=== PATIENT | male | born 1955 | race Caucasian/White ===

== ENCOUNTER 2016-11-06 13:30 | Inpatient (IN) | payer OTHER ==
[~2016-11-06] VITALS: Ht 185.4 cm; Wt 107.9 kg
--- NOTE | ~2016-11-06 | ER ---
PATIENT'S NAME: BOB GAMA [facility] AGE: 61 Y [address] ROOM: [id number] [place], [place] [address] LOCATION: [facility] ADMIT DATE: 11/06/2016 ER/Outpatient Report DISCHARGE DATE: FAMILY PHYSICIAN: Osmel Medel MD ATTENDING PHYSICIAN: Daniel Scott TIME OF ARRIVAL: 13:30. TIME SEEN: 13:30. IDENTIFICATION: A 61-year-old male. CHIEF COMPLAINT: Spine injury. 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 He denies hitting his head. No loss of consciousness. He denies neck pain. He complains of pain in his mid and low back. He was evaluated in [place] by Dr. Braeden Grant, and found to have a wedge fracture of T12, with L2 compression fractures and transverse process fractures in the lumbar spine. He is neurologically intact. The remainder CT scans were negative other than very tiny bilateral apical pneumothoraces. ALLERGIES: NO KNOWN DRUG ALLERGIES. CURRENT MEDICATIONS: 1. The patient received 200 mcg of fentanyl en route. 2. Aspirin 81 mg daily. 3. He takes a blood pressure medicine, a cholesterol medicine, and medicine for reflux. He does not know the names of them. MEDICAL PROBLEMS: 1. Hypertension. 2. Gastroesophageal reflux disease. 3. Hyperlipidemia. 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 He lives in [place]. He is . Tobacco use, denies. Alcohol use, denies. Drug use, PATIENT'S NAME: BOB GAMA [facility] AGE: 61 Y [address] ROOM: [id number] [place], [place] [address] LOCATION: [facility] ADMIT DATE: 11/06/2016 ER/Outpatient Report DISCHARGE DATE: FAMILY PHYSICIAN: Osmel Medel MD ATTENDING PHYSICIAN: Daniel Scott. REVIEW OF SYSTEMS: All systems were reviewed and were negative other than what is noted in the HPI. PHYSICAL EXAMINATION: VITAL SIGNS: Height is 6 feet 1 inch and weight is 107.3 kg. Blood pressure was 123/78, pulse was 66, respirations were 18, temperature were 98.2, and saturations were 97% on room air. GENERAL: A 61-year-old male, in no acute distress. At this time, his pain is tolerable. HEENT: Head: Normocephalic and atraumatic other than a small abrasion in left frontal scalp. Eyes: Pupils were equal and reactive to light and accommodation. Extraocular movements were intact. Nose: Mucosa was pink. No lesions or drainage. Mouth: No lesions. Pharynx was benign. No malocclusion of his teeth. NECK: Supple. No lymphadenopathy. No tenderness to palpation of his cervical spine. LUNGS: Clear to auscultation. Breath sounds were slightly diminished in the bases. HEART: Regular rate and rhythm. No murmur, rub, or gallop. ABDOMEN: Bowel sounds were present. Soft, nondistended, and nontender. SKIN: [place], warm, and dry. Abrasion on the left frontal scalp and the PIP of his right third finger. Superficial scratches on his lower extremities and superficial scratches on his upper and lower back. NEUROLOGICAL: The patient is alert and oriented x4. Cranial nerves II through XII were grossly intact. Motor strength was 5/5 throughout. Sensation was intact to light touch. EMERGENCY ROOM COURSE: Records as well as CT scans were reviewed from [place]. Dr. Scott did roll the patient. We log-rolled him here in the Emergency Room. He did have the abrasions as noted on his back with tenderness in the mid thoracic and lumbar spine, and then some swelling in the lower thoracic and lumbar spine area. The patient remained hemodynamically stable throughout his stay here in the Emergency Room. LABORATORY DATA: Labs from [place] included at 09:54, hemoglobin of 14, hematocrit of 42, white count of 12.5, and platelets of 208. Venous pH was 7.36. INR is 1.1. Sodium was 136, potassium was 3.6, chloride was 110, bicarb was 19, BUN was 20, creatinine was 1.19, and blood sugar was 213. Liver enzymes were normal. DIAGNOSTIC STUDIES: PATIENT'S NAME: BOB GAMA [facility] AGE: 61 Y [address] ROOM: [id number] [place], [place] [address] LOCATION: [facility] ADMIT DATE: 11/06/2016 ER/Outpatient Report DISCHARGE DATE: FAMILY PHYSICIAN: Osmel Medel MD ATTENDING PHYSICIAN: Daniel Scott Head CT without contrast was normal. Lumbar spine CT without contrast had acute anterior compression fractures of T12 and L2, slightly distracted left T11 transverse process and right T12 transverse process and pars fractures, displaced left L1 and bilateral L2 and left L3 transverse process fractures, and transitional sacralized L5 vertebral body. CT scan of the cervical spine without contrast, moderate central right disk protrusion. Osteophyte complex at C5-C6 causes moderate to severe right foraminal stenosis, likely impinging the right C6 nerve root. Mild chronic disk protrusion at C6-C7 with mild foraminal stenosis. Mild disk bulges at the remaining levels. Moderate right C3-C4 foraminal stenosis. Moderately severe right C4-C5 foraminal stenosis, which could affect the right C5 nerve root. CT of chest and abdomen and pelvis with IV contrast, small bilateral pneumothoraces. Right upper anterior mediastinal contusion without extravasation of contrast. Minimal right upper pneumomediastinum. Mild upper retroperitoneal contusion without extravasation of contrast. IMPRESSION AND PLAN: 1. T12 compression fracture. 2. L2 compression fracture. 3. Transverse process fractures including left T11, right T12, left L1, bilateral L2, and left L3. 4. T12 pars interarticularis fracture. 5. Degenerative changes and foraminal stenosis of the cervical spine with no acute traumatic abnormalities. 6. Small bilateral pneumothoraces. 7. Right upper anterior mediastinal contusion without extravasation of contrast and minimal right upper pneumomediastinum. 8. Mild upper retroperitoneal contusion. Dr. Scott, Spine surgeon on-call, evaluated the patient in the Emergency Room and planned for admission. The patient will be placed in a TLSO brace and an [place] cervical collar. Dr. Mchugh, Trauma surgeon on-call, also evaluated the patient in the Emergency Room for consultation, and the patient was taken to the floor in stable condition. JOSIANE MARSHALL MD CAR/modl PATIENT'S NAME: BOB GAMA [facility] AGE: 61 Y [address] ROOM: [address] [address] LOCATION: [facility] ADMIT DATE: 11/06/2016 ER/Outpatient Report DISCHARGE DATE: FAMILY PHYSICIAN: Osmel Medel MD ATTENDING PHYSICIAN: Daniel Scott /[id number] d: 11/06/162038 t: 11/08/162045, OUTPATIENT REPORT
--- NOTE | ~2016-11-06 | CON ---
PATIENT'S NAME: BOB GAMA [facility] AGE: 61 Y [address] ROOM: [place] [address] LOCATION: [facility] ADMIT DATE: 11/06/2016 Consultation DISCHARGE DATE: FAMILY PHYSICIAN: Physician, Unknown ATTENDING PHYSICIAN: Dayanna Kat DATE OF CONSULTATION: 11/06/2016 HISTORY OF PRESENT ILLNESS: This is a consultation to the emergency department for a trauma evaluation for a 61-year-old male who was taking down a deer stand from a tree and fell approximately 18 feet to packed dirt below. He had no loss of consciousness. He was able to crawl to his phone which was nearby and call for an ambulance service to take him to a local hospital. There he was evaluated with physical exam, laboratory, and radiologic imaging. He had some identified thoracolumbar fractures without identified neurologic injury. He also had tiny bilateral pneumothoraces seen on his CT imaging. The remainder of his clinical and radiographic examination was normal. The patient was transferred to [facility] for further evaluation. Again the patient denies loss of consciousness and he complains only of back pain. PAST MEDICAL HISTORY: Significant for hypertension, hyperlipidemia, and gastroesophageal reflux disease. PAST SURGICAL HISTORY: His surgeries include a "hernia repair" to the abdomen and groin without further clarification. ALLERGIES: HE HAS NO ALLERGIES. PHYSICAL EXAMINATION: VITAL SIGNS: He is afebrile with normal vital signs. GENERAL: His GCS is 15. He is in no significant distress. HEENT: Reveals only a small abrasion over his left brow. His cranial nerves are intact. His sclerae are anicteric and uninjected. His oropharynx is clear. His midface is stable. His neck is supple. There is no evidence of scalp lacerations or cervical injuries. His C-spine has been cleared radiographically at the previous hospital and he arrived without a collar. CARDIAC: Normal. CHEST: Reveals no evidence of bony deformity or tenderness or crepitus. He has bilateral breath sounds. ABDOMEN: Soft. He does have some laparoscopic port site scars consistent with previous surgery. Nontender. His pelvis is stable. PATIENT'S NAME: BOB GAMA [facility] AGE: 61 Y [address] ROOM: [place] [address] LOCATION: [facility] ADMIT DATE: 11/06/2016 Consultation DISCHARGE DATE: FAMILY PHYSICIAN: Physician, Unknown ATTENDING PHYSICIAN: Dayanna Kat : His testicles are descended bilaterally. His phallus is circumcised and normal. RECTAL: Normal. EXTREMITIES: Shows small abrasions to his left calf. He has full range of motion of his upper and lower extremities and he is able to raise his elbows off the table. His knees are up in the air and his heel is off the table. His back has some midline tenderness without step-off or obvious ecchymoses. He has no flank tenderness. DIAGNOSTIC DATA: His laboratory examination is unremarkable. CT scan images were reviewed. IMPRESSION: 1. Thoracolumbar fractures. 2. Tiny occult bilateral pneumothorax without clinical evidence of respiratory compromise. RECOMMENDATIONS: 1. Defer management of spinal injuries to the primary team. 2. Obtain a chest x-ray if the patient develops pulmonary symptoms of tachypnea, shortness of breath, or hypoxia. Otherwise routine chest x- ray is not necessarily indicated. 3. Avoid air travel for a period of 6 weeks. This is a soft recommendation but appears prudent given the tiny pneumothoraces that he did develop traumatically. CHERYLE SALGUERO MD CM/vianney /[id number] d: 11/06/16 1531 t: 11/12/16 0708, CONSULTATION REPORT
--- NOTE | ~2016-11-06 | PUL ---
PATIENT'S NAME: BOB GAMA [facility] AGE: 61 Y [address] ROOM: [address] [address] LOCATION: [facility] ADMIT DATE: 11/06/2016 Pulmonary DISCHARGE DATE: 11/09/2016 FAMILY PHYSICIAN: Osmel Medel MD ATTENDING PHYSICIAN: Daniel Scott NAME OF PROCEDURE: Overnight Pulse Oximetry DATE OF PROCEDURE: November 08 to November 09, 2016 REASON FOR EXAM: Nocturnal hypoxemia RESULTS: The test was preformed on room air. The recording time was 9 hours, 30 minutes, and 28 seconds. The highest pulse was 105 per minute, lowest pulse was 68 per minute, mean pulse was 82 per minute. Highest SpO2 was 97%, lowest SpO2 was 82%, and mean SpO2 was 98.6%. The total cumulative time when saturation was below 88% is more than 9 minutes. The desaturation event index is 4.3. PHYSICIAN INTERPRETATION: The patient has evidence of significant nocturnal hypoxia and would qualify for supplemental oxygen as per Medicare criteria. Because of the severity of nocturnal hypoxia we would recommend a sleep study at this time. MD HENOK CLAYTON/agustina /[id number] dtt: 11/11/16 1644 , TELMA JACKSON dtd: 11/11/16 1529
--- NOTE | ~2016-11-06 | HP ---
PATIENT'S NAME: BOB GAMA [facility] AGE: 61 Y [address] ROOM: [address] [address] LOCATION: [facility] ADMIT DATE: 11/06/2016 History & Physical DISCHARGE DATE: FAMILY PHYSICIAN: Osmel Medel MD ATTENDING PHYSICIAN: Daniel Ross DATE OF SERVICE: 11/06/2016 TIME: 2:15 p.m. HISTORY OF PRESENT ILLNESS: Mr. Gama is a 61-year-old right-handed healthy white male, fell approximately 20 feet out of a deer stand, landed on his back on hard dirt. No loss of consciousness. The incident occurred approximately 9:30 a.m. Immediate severe pain in the mid and low back, he has no pain radiating down his arms or legs or noted weakness. No loss of bowel or bladder control. Denies neck pain, but he absolutely refuses to move his neck. He has received fentanyl 200 mcg. Denies any other injury. MEDICATIONS: See list. ALLERGIES: NONE KNOWN. PAST MEDICAL HISTORY: Hypertension, elevated cholesterol. Does not smoke. Does not chew. No alcohol. No drug abuse. REVIEW OF SYSTEMS: As above. FAMILY MEDICAL HISTORY: Noncontributory. 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 He is . Children are grown. His son is Luis Antonio Gama, who used to be an x-ray tech here at [employer]. PHYSICAL EXAMINATION: GENERAL: White male, in moderate distress. HEENT: He hears and sees. There is an abrasion on his left forehead. NECK: Nontender. Absolutely refuses to move his neck. PATIENT'S NAME: BOB GAMA [facility] AGE: 61 Y [address] [place]: [id number] [address] LOCATION: [facility] ADMIT DATE: 11/06/2016 History & Physical DISCHARGE DATE: FAMILY PHYSICIAN: Osmel Medel MD ATTENDING PHYSICIAN: Daniel Ross MUSCULOSKELETAL: T-spine, generally tender throughout. Lumbosacral spine, most tender at the thoracolumbar junction and the mid lumbar spine. No tenderness of the SI joints. PELVIS: Stable. HEART: His pulse rate is regular. LUNGS: Able to take in a deep breath. ABDOMEN: Soft, nontender. RECTAL: Examination was performed. There is normal perirectal sensation. Normal tone. No blood. NEUROLOGIC: Sensation is normal throughout the upper and lower extremities and torso. Motor strength biceps are 5/5 bilaterally, triceps 5/5 bilaterally, wrist extensors 5/5 bilaterally, stacker driver are 5/5 bilaterally, intrinsics are 5/5 bilaterally, iliopsoas 5/5 bilaterally, quads are 5/5 bilaterally, anterior tib 5/5 bilaterally, extensor hallucis longus 5/5 bilaterally, gastrocs 5/5 bilaterally. Normal tone. INTEGUMENT: There is an abrasion on his left forehead. There are also abrasions and scratches throughout his thoracic spine, more on the right than the left. VASCULAR: Distal pulses are palpable. IMAGING STUDIES: CT scan of the cervical spine, multilevel spondylosis, most marked at cervical 5-6 and cervical 6-7. There is at least mild stenosis at cervical 5-6. No fracture or dislocation is evident. Alignment is lordotic. Thoracic spine, three column fracture of thoracic 12. Posteriorly this involves the right pars and lamina. There was minimal bursting, minimal kyphotic deformity. There is left-sided transverse process fractures at thoracic 11, thoracic 12. CT scan of the lumbar spine shows a superior endplate fracture of lumbar 2 with minimal deformity. There are bilateral transverse process fractures at lumbar 2 and left-sided transverse process fractures at lumbar 1 and lumbar 3. Of note, there are only four lumbar vertebrae. ASSESSMENT AND PLAN: Polytrauma patient, known to have small pneumothoraces bilaterally. He has had a sprain to his neck. We will protect in a collar. Fractures at the thoracic and lumbar spine will be treated conservatively in a TLSO. We will keep at bedrest on log roll until TLSO was available. We will then mobilize and take upright x-rays and follow his exam. If in the TLSO, he would develop intractable back pain, increasing kyphotic deformity, or neurologic deficit, he would transition to surgical care. Would expect conservative care should be adequate. May have other injuries that are not yet identified. The patient understands the plan of treatment. PATIENT'S NAME: BOB GAMA [facility] AGE: 61 Y [address] ROOM: [id number], [place] [address] LOCATION: [facility] ADMIT DATE: 11/06/2016 History & Physical DISCHARGE DATE: FAMILY PHYSICIAN: Osmel Medel MD ATTENDING PHYSICIAN: Daniel Ross DANIEL ROSS MD DPM/wandal /[id number] D: [id number] T: [id number] HISTORY & PHYSICAL
--- NOTE | ~2016-11-06 | DS ---
PATIENT'S NAME: BOB GAMA [facility] AGE: 61 Y [address] ROOM: [address] [address] LOCATION: [facility] ADMIT DATE: 11/06/2016 Discharge Summary DISCHARGE DATE: 11/09/2016 FAMILY PHYSICIAN: Osmel Medel MD ATTENDING PHYSICIAN: Daniel Ross HOSPITAL COURSE: Mr. Gama was a trauma patient. He fell from a height from his deer stand. Fractures of thoracic 12 and lumbar 2, a sprain to the neck, and multiple contusions. He was protected in [place] collar, mobilized in a TLSO. X-rays documented maintenance of alignment at T12 and lumbar 2. Remained neurologically intact. No increase of deformity. Pain easily controlled. Ready for discharge to home on a regular diet, TLSO, and collar. Percocet for pain, transition to [place] and then Tylenol as possible. Lovenox to avoid DVT. Unable to work. DISCHARGE MEDICATIONS: Include: 1. Aspirin. 2. Colace. 3. Zantac. 4. Cozaar. 5. Percocet. 6. [place]. INSTRUCTIONS: Scheduled to follow up with Dr. Ross on November 15, 2016, at 1 p.m. X-rays have been ordered at the [facility] [place] [facility] at noon, flexion-extension views of the cervical spine, and upright x-rays of the thoracolumbar spine in the TLSO. DANIEL ROSS MD DPM/vianney /[id number] d: 11/14/16 1320 t: 11/17/16 1219, DISCHARGE SUMMARY
[2016-11-06] MEDS ORDERED: COZAAR50 MG PO (16:42)
[2016-11-06] MEDS ORDERED: ZANTAC (NON-FO150 MG PO (16:43)
[2016-11-06] MEDS ORDERED: ZOCOR20 MG PO (16:43)
[2016-11-06] MEDS ORDERED: ASPIRIN (CHILDR81 MG PO (16:45)
[2016-11-06] MEDS ORDERED: COQ-10100 MG PO (16:46)
[2016-11-06] MEDS ORDERED: FISH OIL 1,0001 EACH PO (16:46)
--- NOTE | 2016-11-06 17:19 | NUR ---
Significant Event: 61 year old male. admitted to [facility] at [address] Scott (ortho). Lives in [place]. Was working on a deer stand today and he fell about 18 feet off of it. He did not loose consciousness or hit his head. he was able to call 911. was transported to [facility] and then [facility] per ambulance for services of Dr. Scott. [place] collar and TLSO brace on. IV to right AC, Right hand and left hand all saline locked.
--- NOTE | 2016-11-06 20:26 | NUR ---
Significant Event: a/o x 3. pain to his lower back that does not radiate. no numbness/tingling. equal/moderate strength throughout. [place] collar on. TLSO on. Peripheral IV x 3 saline locked. abrasions to bilateral lower extremities and left eyebrow. voids x 2 without difficulty. up to chair with gait belt and two assist. log roll. plan- x rays in the morning.
--- NOTE | 2016-11-07 04:00 | NUR ---
Significant Event: Patient alert and oriented. Equal strength to extremities. Denies abnormal sensation. TLSO and [place] collar on at all times. Pain managed with oral medications. Up to chair for supper. Up with 2 assist. Needs encouragement to move and reposition. Pleasant and cooperative with cares. Follow up: xray at 0800 on 11/07/16, continue to monitor
--- NOTE | 2016-11-07 18:58 | NUR ---
Significant Event: A/O X 3. pain to back that is a little worse on the left side. dr. Scott aware and stated injuries were worse on the left side. No numbness/tingling. equal strength throughout. TLSO and [place] collar on at all times. PRN percocet, PRN valium and PRN dilaudid for pain management. ambulates with walker, gait belt and one assist. Takes meds whole. regular diet. plan- discharge to home tomorrow. Patient had bag bath today as well as shaved and [place] Collar pads changed. oxygen PRN this shift when resting. Monitor overnight for oxygen need.
--- NOTE | 2016-11-08 03:49 | NUR ---
Significant Event: Patient alert and oriented. Denies abnormal sensation. Equal strength to extremities. Up with 1 assist and walker. VSS on room air. Needs encouragement to deep breath. Pain well managed with oral medications. Pleasant and cooperative with cares. Follow up:
--- NOTE | 2016-11-08 13:15 | NUR ---
Introduced self and role of care management to patient. Patient lives in [place] with his . He says told him he will probably go home tomorrow. He says he will need FW walker, toliet seat riser, grabber, shower chair and he is not sure what else. He thinks his has started calling places to get equipment, and I should come back and talk to her. Told him I will come back. Did give him DME list and told him [employer] has equipment to loan out. He says his is going to take a few days off from work when he goes home to assist him and get him settled in. Will follow.
--- NOTE | 2016-11-08 16:16 | NUR ---
Significant Event: Patient A/O X3. Denies N/T. Follows commands. Moves all extremities spontaneously. PERRLA. VSS. Generalized trace edema. Afebrile. Room air with sats in the low to mid 90s. LS clear and diminished. BS present X4. Regular diet. Refused breakfast and lunch related to abdominal distention and being uncomfortable. Prune juice, colace, and a rectal suppository given for constipation. Moderate BM X1 this shift. [place] collar and TLSO brace on at all times. Generalized abrasions noted. R) AC and R ) hand PIVs SLL. 1 assist with gaitbelt and walker. Refused pain meds until bowels start moving more. at bedside on/off throughout shift. Home tomorrow per MD. Follow up:
--- NOTE | 2016-11-09 02:07 | NUR ---
Significant Event: A&OX3. Denies N&T. Equal strength throughout. PERRLA. Up SBA. [place] collar and TLSO on at all times. On tele SR. VSS. RA during the night. Trendox done during the night. Lungs C&D. Last BM 11/08. Regular diet. IV to R) AC SL. Percocet given for pain. Patient has slept in chair during the night states he sleeps better there. Follow up: Home today
[2016-11-09] MEDS ORDERED: PERCOCET 5-3251 EACH PO (12:40)
[2016-11-09] MEDS ORDERED: COLACE100 MG PO (15:01)
[2016-11-09] MEDS ORDERED: NORCO 5-325 TA1 EACH PO (15:03)
[2016-11-09] MEDS ORDERED: LOVENOX 4040 MG/0.4 SUB-Q (15:03)
== END 2016-11-09 15:23 | disposition disaster alternative care site (69) | DRG 552 ==
LOC: GACC 13:30 → GICU 15:14
PROVIDERS: ADMIT Orthopaedic Surgery
DX: S22.080A Wedge compression fracture of T11-T12 vertebra, initial encounter for closed fracture (principal); S27.0XXA Traumatic pneumothorax, initial encounter; S32.018A Other fracture of first lumbar vertebra, initial encounter for closed fracture; S32.028A Other fracture of second lumbar vertebra, initial encounter for closed fracture; S32.038A Other fracture of third lumbar vertebra, initial encounter for closed fracture; S22.088A Other fracture of T11-T12 vertebra, initial encounter for closed fracture; S00.81XA Abrasion of other part of head, initial encounter; S30.810A Abrasion of lower back and pelvis, initial encounter; S80.812A Abrasion, left lower leg, initial encounter; W13.8XXA Fall from, out of or through other building or structure, initial encounter; I10 Essential (primary) hypertension; E78.5 Hyperlipidemia, unspecified; K21.9 Gastro-esophageal reflux disease without esophagitis; M47.892 Other spondylosis, cervical region; M48.02 Spinal stenosis, cervical region; Z79.82 Long term (current) use of aspirin; M40.209 Unspecified kyphosis, site unspecified
CPT/HCPCS: J1170; J2405

== ENCOUNTER → 2016-11-15 | Outpatient (CLI) | payer OTHER ==
[~2016-11-15] MED LIST: ASPIRIN (CHILDR81 MG PO; COLACE100 MG PO; COQ-10100 MG PO; COZAAR50 MG PO; FISH OIL 1,0001 EACH PO; LOVENOX 4040 MG/0.4 SUB-Q; NORCO 5-325 TA1 EACH PO; PERCOCET 5-3251 EACH PO; ZANTAC (NON-FO150 MG PO; ZOCOR20 MG PO
== END | disposition disaster alternative care site (69) ==
LOC: GRAD 12:00
DX: S22.089D Unspecified fracture of T11-T12 vertebra, subsequent encounter for fracture with routine healing (principal); S32.029D Unspecified fracture of second lumbar vertebra, subsequent encounter for fracture with routine healing; M47.892 Other spondylosis, cervical region; X58.XXXD Exposure to other specified factors, subsequent encounter